=== PATIENT | male | born 1965 | race Caucasian/White ===

== ENCOUNTER 2017-11-24 11:23 | Emergency (ER) | payer MEDICAID ==
[~2017-11-24] VITALS: Ht 162.6 cm; Wt 78.9 kg
[2017-11-24 11:31] VITALS: BP 137/88
--- NOTE | 2017-11-24 11:36 | NUR ---
pt amb to bed11
--- NOTE | 2017-11-24 11:40 | NUR ---
52/m BIB FAMILY C/O NON PRODUCTIVE COUGH X 1 WK & lump to left groin for 9 months to a year; c/o left groin pain worsening the past couple of days; denies dysuria. DENIES N/V/D; SKIN IS PINK/WARM/DRY; AAOX4 WITH EVEN AND STEADY GAIT; LUNGS CLEAR BL. PATIENT STATES PAIN OF 9/10 AT THIS TIME. PATIENT POSITIONED FOR COMFORT; HOB ELEVATED; BEDRAILS UP X2; BED DOWN. ER MD MADE AWARE OF PT STATUS.
[2017-11-24] MEDS ORDERED: KETOROLAC 60 MG/2 ML VIAL IM ONE (11:50)
[2017-11-24 12:03] VITALS: BP 123/77
== END 2017-11-24 12:03 | disposition home or self-care (01) ==
LOC: MED 11:23
DX: K40.90 Unilateral inguinal hernia, without obstruction or gangrene, not specified as recurrent (principal); Z90.49 Acquired absence of other specified parts of digestive tract; F17.200 Nicotine dependence, unspecified, uncomplicated
CPT/HCPCS: 96372; 99283; J1885

== ENCOUNTER 2023-07-17 07:39 | Emergency (ER) | payer MEDICAID, OTHER ==
[~2023-07-17] VITALS: Ht 167.6 cm; Wt 72.6 kg
[2023-07-17 07:45] VITALS: BP 163/96; PULSE 70; RESP 16; TEMP 97.7; O2SAT 98
[2023-07-17 08:20] VITALS: O2SAT 96
[2023-07-17 08:31] LABS: BASOPHILS # (AUTO) 0.2 K/uL (0.00-0.22); EOSINOPHILS # (AUTO) 0.3 K/uL (0-0.4); HEMATOCRIT 45.5 % (36-52); HEMOGLOBIN 15.2 g/dL (12.0-18.0); LYMPHOCYTES # (AUTO) 3.4 K/uL (2.0-11.5); LYMPHOCYTES % (AUTO) 45.4 % (20.5-51.1); MEAN CORPUSCULAR HEMOGLOBIN 29 pg (27-31); MEAN CORPUSCULAR HGB CONC 34 g/dL (33-37); MEAN CORPUSCULAR VOLUME 87.1 fL (80-94); MONOCYTES # (AUTO) 0.7 K/uL (0.8-1.0); MONOCYTES % (AUTO) 9.5 % (1.7-9.3); NEUTROPHILS # (AUTO) 2.9 K/uL (1.8-7.7); NEUTROPHILS % (AUTO) 39.1 % (42.2-75.2); PLATELET COUNT (AUTO) 238 K/uL (140-450); RED BLOOD CELL COUNT(AUTO) 5.23 MIL/uL (4.20-6.10); RED CELL DISTRIBUTION WIDTH 13.7 % (11.6-13.7); WHITE BLOOD COUNT (AUTO) 7.4 K/uL (4.8-10.8)
[2023-07-17] MEDS ORDERED: ASPIRIN 325 MG TAB PO ONE (08:35)
[2023-07-17 09:14] LABS: ALBUMIN 3.6 g/dL (3.4-5.0); ANION GAP 10.9 (8-16); CALCIUM 8.6 mg/dL (8.5-10.1); CARBON DIOXIDE 27.7 mmol/L (21-32); CREATININE 1.1 mg/dL (0.6-1.3); POTASSIUM 3.6 mmol/L (3.5-5.1); TOTAL BILIRUBIN 0.2 mg/dL (0.0-1.0); TOTAL PROTEIN, SERUM 7.4 g/dL (6.4-8.2)
[2023-07-17] MEDS ORDERED: NACL 0.9% 1,000 ML IV ONE (12:00)
[2023-07-17 14:06] VITALS: BP 132/88; PULSE 68; RESP 16; TEMP 97; O2SAT 99
== END 2023-07-17 14:04 | disposition home or self-care (01) ==
LOC: MED 07:39
DX: R07.89 Other chest pain (principal); E86.0 Dehydration; Z79.899 Other long term (current) drug therapy
CPT/HCPCS: 36415; 71045; 80053; 83880; 84484; 85025; 93005; 96360; 99285; J7030